=== PATIENT | male | born 1995 | race Caucasian/White ===

== ENCOUNTER 2016-08-16 21:41 | Emergency (ER) | payer OTHER ==
[~2016-08-16] VITALS: Ht 180.3 cm; Wt 72.7 kg
[2016-08-16 21:43] VITALS: TEMP 98.2
[2016-08-16] MEDS ORDERED: AMOXICILLIN 8751 TAB PO (22:40)
[2016-08-16 22:48] VITALS: BP 132/78; PULSE 95
== END 2016-08-16 22:49 | disposition home or self-care (01) ==
LOC: COL.ER 21:41
DX: S00.83XA Contusion of other part of head, initial encounter (principal); S09.90XA Unspecified injury of head, initial encounter; S01.81XA Laceration without foreign body of other part of head, initial encounter; W17.89XA Other fall from one level to another, initial encounter; Y92.009 Unspecified place in unspecified non-institutional (private) residence as the place of occurrence of the external cause; J32.4 Chronic pansinusitis